=== PATIENT | male | born 1965 | race African-American/Black ===

== ENCOUNTER 2021-04-17 10:32 | Emergency (ER) | payer OTHER ==
[2021-04-17 10:55] VITALS: BMI 29.0
[2021-04-17 20:07] VITALS: BP 158/80; PULSE 84; TEMP 97.5
== END 2021-04-17 20:52 ==
LOC: JER 10:32
DX: R53.1 Weakness (principal)
CPT/HCPCS: 99283-25; 99284-25

== ENCOUNTER 2021-08-06 21:01 | Inpatient (IN) | payer OTHER ==
[2021-08-06 22:36] LABS: BASO % 0.8 % (0-2.0); EOS % 1.3 % (0-4.5); HEMATOCRIT 23.5 % (35.4-49); HEMOGLOBIN 7.5 GM/dL (11.7-16.9); LYMPH % 26.2 % (8-40); MCH 30.2 pg (25.7-33.7); MEAN CELL VOLUME 94.4 fl (80-96); MEAN PLT VOLUME 7.1 fl (7.5-11.1); MONO % 7.9 % (3.8-10.2); NEUT % 63.8 % (42.8-82.8); PLATELET COUNT 363 10^3/uL (134-434); RBC 2.49 M/mm3 (4.00-5.60); RDW 15.2 % (11.9-15.9); WHITE BLOOD COUNT 14.6 K/mm3 (4.0-10.0)
[2021-08-06 22:43] LABS: INR 1.17 (0.83-1.09); PROTHROMBIN TIME (PATIENT) 13.1 SEC (9.7-13.0)
[2021-08-06 22:46] LABS: ACTIVATED PTT 26.8 SECONDS (25.2-36.5)
[2021-08-06 22:57] LABS: BLOOD UREA NITROGEN 28.1 mg/dL (7-18); CALCIUM 8.4 mg/dL (8.5-10.1); MAGNESIUM 2.2 mg/dL (1.8-2.4)
[2021-08-06 22:58] LABS: ALBUMIN 2.3 g/dl (3.4-5.0)
[2021-08-06 23:01] LABS: CREATININE 0.9 mg/dL (0.55-1.3)
[2021-08-06 23:02] LABS: BILIRUBIN,TOTAL 0.2 mg/dL (0.2-1); TOT PROT 5.8 g/dl (6.4-8.2)
[2021-08-07 06:42] LABS: BASO % 0.6 % (0-2.0); EOS % 0.7 % (0-4.5); HEMATOCRIT 27.6 % (35.4-49); HEMOGLOBIN 8.9 GM/dL (11.7-16.9); LYMPH % 17.9 % (8-40); MCH 30.6 pg (25.7-33.7); MCHC 32.3 g/dl (32.0-35.9); MEAN CELL VOLUME 94.7 fl (80-96); MEAN PLT VOLUME 7.9 fl (7.5-11.1); MONO % 7.5 % (3.8-10.2); NEUT % 73.3 % (42.8-82.8); PLATELET COUNT 358 10^3/uL (134-434); RBC 2.91 M/mm3 (4.00-5.60); RDW 14.7 % (11.9-15.9); WHITE BLOOD COUNT 12.9 K/mm3 (4.0-10.0)
[2021-08-07 06:44] LABS: CALCIUM 8.7 mg/dL (8.5-10.1)
[2021-08-07 06:45] LABS: ALBUMIN 2.4 g/dl (3.4-5.0); BLOOD UREA NITROGEN 28.8 mg/dL (7-18)
[2021-08-07 06:48] LABS: CREATININE 0.9 mg/dL (0.55-1.3)
[2021-08-07 06:49] LABS: BILIRUBIN,TOTAL 2.5 mg/dL (0.2-1)
[2021-08-07 06:50] LABS: TOT PROT 5.8 g/dl (6.4-8.2)
[2021-08-07] MEDS ORDERED: DEXTROSE 5%-0.45% SALINE 1,000 ML IV SCH (10:15)
[2021-08-07] MEDS: POLYETHYLENE GLYCOL (HEALTHYLAX) 3350 17 GM PACKET PO SCH (21:42)
[2021-08-07] MEDS: PANTOPRAZOLE 40 MG TABLET PO SCH (21:42)
[2021-08-07] MEDS: INSULIN (LEVEMIR) 100 UNITS/ML UNITS SQ SCH (21:42)
[2021-08-08] MEDS: INSULIN (LEVEMIR) 100 UNITS/ML UNITS SQ SCH ×2 (06:14→21:11)
[2021-08-08] MEDS: POLYETHYLENE GLYCOL (HEALTHYLAX) 3350 17 GM PACKET PO SCH ×3 (06:14→21:07)
[2021-08-08 08:24] LABS: BASO % 0.4 % (0-2.0); EOS % 1.5 % (0-4.5); HEMATOCRIT 26.5 % (35.4-49); HEMOGLOBIN 8.8 GM/dL (11.7-16.9); INR 1.1 (0.83-1.09); LYMPH % 21.9 % (8-40); MCH 31.1 pg (25.7-33.7); MCHC 33.2 g/dl (32.0-35.9); MEAN CELL VOLUME 93.8 fl (80-96); MEAN PLT VOLUME 7.8 fl (7.5-11.1); NEUT % 70.2 % (42.8-82.8); PLATELET COUNT 378 10^3/uL (134-434); PROTHROMBIN TIME (PATIENT) 12.3 SEC (9.7-13.0); RBC 2.82 M/mm3 (4.00-5.60); RDW 14.9 % (11.9-15.9); WHITE BLOOD COUNT 11.6 K/mm3 (4.0-10.0)
[2021-08-08 08:52] LABS: ALBUMIN 2.5 g/dl (3.4-5.0); BLOOD UREA NITROGEN 21.7 mg/dL (7-18); CALCIUM 8.9 mg/dL (8.5-10.1)
[2021-08-08 08:54] LABS: BILIRUBIN,TOTAL 0.8 mg/dL (0.2-1); TOT PROT 6.1 g/dl (6.4-8.2)
[2021-08-08 08:55] LABS: CREATININE 0.7 mg/dL (0.55-1.3); URIC ACID 4.1 mg/dL (2.6-7.2)
[2021-08-08] MEDS ORDERED: PT OWN MED DRAWER 7, Y5N ONE (09:10)
[2021-08-08] MEDS: ARIPiprazole 5 MG TABLET PO SCH (09:39)
[2021-08-08] MEDS: VENLAFAXINE HCL 37.5 MG E.R. CAPSULE PO SCH (09:39)
[2021-08-08] MEDS: ALLOPURINOL 100 MG TABLET (FP) PO SCH (09:39)
[2021-08-08] MEDS: PANTOPRAZOLE 40 MG TABLET PO SCH ×2 (09:39→21:07)
[2021-08-08] MEDS ORDERED: IRON SUCROSE INJECTION 200 MG in SODIUM CHLORIDE 90 ML IVPB ONE (15:00)
[2021-08-08] MEDS: AMINO ACIDS/PROTEIN HYDROLYS 30 ML LIQUID.PKT PO SCH (17:50)
[2021-08-09] MEDS: INSULIN (LEVEMIR) 100 UNITS/ML UNITS SQ SCH (07:16)
[2021-08-09] MEDS: POLYETHYLENE GLYCOL (HEALTHYLAX) 3350 17 GM PACKET PO SCH ×3 (07:16→21:20)
[2021-08-09 08:00] LABS: BASO % 0.5 % (0-2.0); EOS % 1.5 % (0-4.5); HEMATOCRIT 24.5 % (35.4-49); HEMOGLOBIN 8.2 GM/dL (11.7-16.9); LYMPH % 24.2 % (8-40); MCH 31.7 pg (25.7-33.7); MCHC 33.4 g/dl (32.0-35.9); MEAN CELL VOLUME 94.9 fl (80-96); MEAN PLT VOLUME 7.3 fl (7.5-11.1); MONO % 8.2 % (3.8-10.2); NEUT % 65.6 % (42.8-82.8); PLATELET COUNT 344 10^3/uL (134-434); RBC 2.58 M/mm3 (4.00-5.60); RDW 15.3 % (11.9-15.9); WHITE BLOOD COUNT 10.2 K/mm3 (4.0-10.0)
[2021-08-09 08:31] LABS: CALCIUM 8.5 mg/dL (8.5-10.1)
[2021-08-09 08:32] LABS: ALBUMIN 2.4 g/dl (3.4-5.0); BLOOD UREA NITROGEN 17.5 mg/dL (7-18)
[2021-08-09 08:35] LABS: CREATININE 0.7 mg/dL (0.55-1.3)
[2021-08-09 08:37] LABS: BILIRUBIN,TOTAL 0.6 mg/dL (0.2-1); TOT PROT 5.8 g/dl (6.4-8.2)
[2021-08-09] MEDS: AMINO ACIDS/PROTEIN HYDROLYS 30 ML LIQUID.PKT PO SCH ×2 (08:40→17:44)
[2021-08-09] MEDS ORDERED: PEG 3350/NA SULF BICARB CL/KCL 4000 ML SOLN.RECON PO ONE (09:00)
[2021-08-09] MEDS ORDERED: PT OWN MED DRAWER 7, Y5N ONE (09:34)
[2021-08-09] MEDS: MULTIVITAMINS (DAILY MVI) TABLET (FP) PO SCH (09:51)
[2021-08-09] MEDS: ARIPiprazole 5 MG TABLET PO SCH (09:51)
[2021-08-09] MEDS: ASCORBIC ACID 500 MG TABLET (FP) PO SCH (09:51)
[2021-08-09] MEDS: VENLAFAXINE HCL 37.5 MG E.R. CAPSULE PO SCH (09:51)
[2021-08-09] MEDS: ALLOPURINOL 100 MG TABLET (FP) PO SCH (09:51)
[2021-08-09] MEDS: PANTOPRAZOLE 40 MG TABLET PO SCH ×2 (09:51→21:19)
[2021-08-09] MEDS ORDERED: POTASSIUM CHLORIDE TABS 20 MEQ TABLET.ER (FP) PO ONE (10:46)
[2021-08-09] MEDS: DEXTROSE 5%-0.45% SALINE 1,000 ML IV SCH (11:42)
[2021-08-09] MEDS: INSULIN SLIDING SCALE (NOVOLOG) 1 VIAL SQ SCH ×2 (17:06→21:23)
[2021-08-09] MEDS ORDERED: BISACODYL 5 MG TABLET.DR (FP) PO ONE (18:00)
[2021-08-10] MEDS: INSULIN SLIDING SCALE (NOVOLOG) 1 VIAL SQ SCH ×4 (06:34→21:16)
[2021-08-10] MEDS: POLYETHYLENE GLYCOL (HEALTHYLAX) 3350 17 GM PACKET PO SCH ×3 (06:34→21:11)
[2021-08-10 08:28] LABS: BASO % 0.5 % (0-2.0); EOS % 1.2 % (0-4.5); LYMPH % 19.6 % (8-40); MCHC 33.5 g/dl (32.0-35.9); MEAN CELL VOLUME 95.5 fl (80-96); MEAN PLT VOLUME 7.6 fl (7.5-11.1); MONO % 7.6 % (3.8-10.2); NEUT % 71.1 % (42.8-82.8); PLATELET COUNT 393 10^3/uL (134-434); RBC 2.51 M/mm3 (4.00-5.60); WHITE BLOOD COUNT 9.5 K/mm3 (4.0-10.0)
[2021-08-10 08:53] LABS: CALCIUM 8.7 mg/dL (8.5-10.1)
[2021-08-10 08:54] LABS: ALBUMIN 2.3 g/dl (3.4-5.0); BLOOD UREA NITROGEN 11.2 mg/dL (7-18)
[2021-08-10 08:57] LABS: BILIRUBIN,TOTAL 0.6 mg/dL (0.2-1); CREATININE 0.7 mg/dL (0.55-1.3)
[2021-08-10 08:59] LABS: TOT PROT 5.8 g/dl (6.4-8.2)
[2021-08-10] MEDS: AMINO ACIDS/PROTEIN HYDROLYS 30 ML LIQUID.PKT PO SCH ×2 (09:05→17:58)
[2021-08-10] MEDS ORDERED: PT OWN MED DRAWER 7, Y5N ONE (11:28)
[2021-08-10] MEDS: ARIPiprazole 5 MG TABLET PO SCH (11:30)
[2021-08-10] MEDS: PANTOPRAZOLE 40 MG TABLET PO SCH ×2 (11:30→21:11)
[2021-08-10] MEDS: ASCORBIC ACID 500 MG TABLET (FP) PO SCH (11:30)
[2021-08-10] MEDS: MULTIVITAMINS (DAILY MVI) TABLET (FP) PO SCH (11:31)
[2021-08-10] MEDS: VENLAFAXINE HCL 37.5 MG E.R. CAPSULE PO SCH (11:32)
[2021-08-10] MEDS: DEXTROSE 5%-0.45% SALINE 1,000 ML IV SCH (11:32)
[2021-08-10] MEDS: ALLOPURINOL 100 MG TABLET (FP) PO SCH (11:33)
[2021-08-10] MEDS ORDERED: BISACODYL 5 MG TABLET.DR (FP) PO ONE (15:00)
[2021-08-10] MEDS ORDERED: PEG 3350/NA SULF BICARB CL/KCL 4000 ML SOLN.RECON PO ONE (16:00)
[2021-08-10 18:07] LABS: GLIADIN ANTIBODY IGA 4 units (0-19); GLIADIN ANTIBODY IGG 2 units (0-19); TRANSGLUTAMINASE IGG < 2 U/mL (0-5)
[2021-08-11] MEDS: POLYETHYLENE GLYCOL (HEALTHYLAX) 3350 17 GM PACKET PO SCH ×3 (06:04→21:35)
[2021-08-11] MEDS: INSULIN SLIDING SCALE (NOVOLOG) 1 VIAL SQ SCH ×4 (06:17→21:43)
[2021-08-11] MEDS: AMINO ACIDS/PROTEIN HYDROLYS 30 ML LIQUID.PKT PO SCH ×2 (09:09→17:29)
[2021-08-11 09:49] LABS: BASO % 0.6 % (0-2.0); EOS % 1.4 % (0-4.5); HEMOGLOBIN 8.6 GM/dL (11.7-16.9); LYMPH % 24.7 % (8-40); MCH 31.6 pg (25.7-33.7); MCHC 32.9 g/dl (32.0-35.9); MEAN CELL VOLUME 95.9 fl (80-96); MEAN PLT VOLUME 7.5 fl (7.5-11.1); MONO % 7.2 % (3.8-10.2); NEUT % 66.1 % (42.8-82.8); PLATELET COUNT 410 10^3/uL (134-434); RBC 2.71 M/mm3 (4.00-5.60); RDW 14.7 % (11.9-15.9); WHITE BLOOD COUNT 8.6 K/mm3 (4.0-10.0)
[2021-08-11 10:16] LABS: ALBUMIN 2.3 g/dl (3.4-5.0); CREATININE 0.5 mg/dL (0.55-1.3)
[2021-08-11 10:17] LABS: CALCIUM 8.7 mg/dL (8.5-10.1); TOT PROT 5.5 g/dl (6.4-8.2)
[2021-08-11 10:18] LABS: BILIRUBIN,TOTAL 0.6 mg/dL (0.2-1)
[2021-08-11] MEDS ORDERED: PT OWN MED DRAWER 7, Y5N ONE (11:17)
[2021-08-11] MEDS: ARIPiprazole 5 MG TABLET PO SCH (12:01)
[2021-08-11] MEDS: ASCORBIC ACID 500 MG TABLET (FP) PO SCH (12:01)
[2021-08-11] MEDS: VENLAFAXINE HCL 37.5 MG E.R. CAPSULE PO SCH (12:01)
[2021-08-11] MEDS: PANTOPRAZOLE 40 MG TABLET PO SCH ×2 (12:01→21:35)
[2021-08-11] MEDS: MULTIVITAMINS (DAILY MVI) TABLET (FP) PO SCH (12:01)
[2021-08-11] MEDS: ALLOPURINOL 100 MG TABLET (FP) PO SCH (12:01)
[2021-08-11] MEDS: DEXTROSE 5%-0.45% SALINE 1,000 ML IV SCH ×2 (12:02→21:46)
[2021-08-11] MEDS ORDERED: MINERAL OIL ENEMA 133 ML ENEMA RC ONE (14:00)
[2021-08-12] MEDS: INSULIN SLIDING SCALE (NOVOLOG) 1 VIAL SQ SCH ×4 (06:16→21:23)
[2021-08-12] MEDS: POLYETHYLENE GLYCOL (HEALTHYLAX) 3350 17 GM PACKET PO SCH ×3 (06:16→21:22)
[2021-08-12] MEDS: AMINO ACIDS/PROTEIN HYDROLYS 30 ML LIQUID.PKT PO SCH ×2 (10:00→16:43)
[2021-08-12] MEDS ORDERED: PT OWN MED DRAWER 7, Y5N ONE (11:04)
[2021-08-12] MEDS: MULTIVITAMINS (DAILY MVI) TABLET (FP) PO SCH (11:32)
[2021-08-12] MEDS: ASCORBIC ACID 500 MG TABLET (FP) PO SCH (11:33)
[2021-08-12] MEDS: PANTOPRAZOLE 40 MG TABLET PO SCH ×2 (11:33→21:23)
[2021-08-12] MEDS: ALLOPURINOL 100 MG TABLET (FP) PO SCH (11:33)
[2021-08-12] MEDS: ARIPiprazole 5 MG TABLET PO SCH (11:33)
[2021-08-12] MEDS: DEXTROSE 5%-0.45% SALINE 1,000 ML IV SCH (11:34)
[2021-08-12] MEDS: VENLAFAXINE HCL 37.5 MG E.R. CAPSULE PO SCH (11:34)
[2021-08-12 12:19] VITALS: BMI 25.9
[2021-08-12 22:06] VITALS: BP 106/60; PULSE 75; TEMP 98.1
== END 2021-08-12 23:30 | DRG 378 ==
LOC: JER 21:01 → JERBED 23:11 → J4S 08-07 13:29
PROVIDERS: ADMIT Hospitalist; ATTEND Family Medicine
PROC: 30233N1 Transfusion of Nonautologous Red Blood Cells into Peripheral Vein, Percutaneous Approach (ICD-10-PCS; 2021-08-07)
PROC: 0DJ08ZZ Inspection of Upper Intestinal Tract, Via Natural or Artificial Opening Endoscopic (ICD-10-PCS; principal; 2021-08-10 09:00)
PROC: 0DJD8ZZ Inspection of Lower Intestinal Tract, Via Natural or Artificial Opening Endoscopic (ICD-10-PCS; 2021-08-11)
PROC: 0DJD8ZZ Inspection of Lower Intestinal Tract, Via Natural or Artificial Opening Endoscopic (ICD-10-PCS; 2021-08-12)
DX: K57.31 Diverticulosis of large intestine without perforation or abscess with bleeding (principal); D62 Acute posthemorrhagic anemia; E10.9 Type 1 diabetes mellitus without complications; F25.1 Schizoaffective disorder, depressive type; I25.10 Atherosclerotic heart disease of native coronary artery without angina pectoris; I10 Essential (primary) hypertension; E78.5 Hyperlipidemia, unspecified; D72.829 Elevated white blood cell count, unspecified; Z98.61 Coronary angioplasty status
CPT/HCPCS: 36415; 36430; 71045-TC-FY; 74150-TC; 80048; 80053; 82272; 82607; 82728; 82746; 82784; 82962; 83516; 83540; 83550; 83735; 84100; 84155; 84165; 84550; 85025; 85045; 85610; 85730; 86334; 86618; 86850; 86900; 86901; 86922; 87040; 93005; 93010; 99285-25; C9803; J1756; P9058; U0003; U0005